=== PATIENT | male | born 2000 | race Caucasian/White ===

== ENCOUNTER 2021-09-08 15:21 | Emergency (ER) | payer OTHER ==
[~2021-09-08] VITALS: Ht 177.8 cm; Wt 70.9 kg
--- NOTE | 2021-09-08 18:25 | ECGEPIP ---
[facility] - ED Test Date: 2021-09-08 Pat Name: HERMINIA LERMA Department: Room: - Gender: Male Research Executive: SARA : 2000 Requested By: Jennifer Hannon Order Number: [id number] Reading MD: Jennifer Hannon Measurements Intervals [place] Rate: 53 P: 62 AL: 104 QRS: 74 QRSD: 92 T: 21 QT: 370 QTc: 347 Interpretive Statements Sinus bradycardia with short AL Incomplete right bundle branch block No prior Electronically Signed on 09-08-2021 18:25:05 EDT by Jennifer Hannon
[2021-09-08] MEDS ORDERED: ASPIRIN 81 MG CHEW TABLET PO ONE (19:15)
[2021-09-08] MEDS ORDERED: NITROGLYCERIN 0.4 MG SUBL TABLET SL PRN (19:15)
[2021-09-08] MEDS ORDERED: NS 1,000 ML IV SCH (19:15)
--- OUTSIDE RECORDS SUMMARY | 2021-09-08 19:31 | CCD ---
Author Author [facility] Address Unknown Phone Unavailable Support Name Relationship Address Phone [facility] Next Of Kin [address] [place] [address] Unavailable Re-disclosure Warning The records that you are about to access may contain information from federally-assisted alcohol or drug abuse programs. If such information is present, then the following federally mandated warning applies: This information has been disclosed to you from records protected by federal confidentiality rules (42 CFR part 2). The federal rules prohibit you from making any further disclosure of this information unless further disclosure is expressly permitted by the written consent of the person to whom it pertains or as otherwise permitted by 42 CFR part 2. A general authorization for the release of medical or other information is NOT sufficient for this purpose. The Federal rules restrict any use of the information to criminally investigate or prosecute any alcohol or drug abuse patient.The records that you are about to access may contain highly sensitive health information, the redisclosure of which is protected by Article 27-F of the [facility] Public Health law. If you continue you may have access to information: Regarding HIV / AIDS; Provided by facilities licensed or operated by the [facility] Office of Mental Health; or Provided by the [facility] Office for People With Developmental Disabilities. If such information is present, then the following [facility] mandated warning applies: This information has been disclosed to you from confidential records which are protected by state law. State law prohibits you from making any further disclosure of this information without the specific written consent of the person to whom it pertains, or as otherwise permitted by law. Any unauthorized further disclosure in violation of state law may result in a fine or custodial sentence or both. A general authorization for the release of medical or other information is NOT sufficient authorization for further disc losure. Immunizations Vaccine Date Status Description Data Source(s) INFLUENZA VIRUS VACCINE QUADRIVALENT 2019- (6 MOS AN D UP) 12/13/2020 12:00:00 AM EST completed [facility] Medications No Information Insurance Providers Payer name Policy type / Coverage type Policy ID Covered democrat ID Covered democrat's relationship to quiles Policy [employer] Plan Information [employer] [id number] Problems, Conditions, and Diagnoses No Information Surgeries/Procedures No Information Results No Information Social History No Information
--- NOTE | 2021-09-08 20:07 | REP ---
INDICATION: CHEST PAIN. COMPARISON: None. TECHNIQUE: Portable FINDINGS: The technique utilized in obtaining the radiograph has magnified the cardiac silhouette and accentuated the interstitial markings. The superior mediastinal structures are midline. The cardiac silhouette is unremarkable in size, shape, and position. The diaphragmatic surfaces of the lungs are regular, and the costophrenic angles are clear. The pulmonary smith are clear. The imaged osseous structures are intact. IMPRESSION: There is no acute cardiopulmonary disease. <Electronically signed by Doc Fisher > 09/08/212002
[2021-09-08 20:20] LABS: BASO % 0.4 % (0.0-1.0); EOS # 0.1 10^3/uL (0.0-0.5); EOS % 1.1 % (0.0-3.0); HEMATOCRIT 43.6 % (42.0-52.0); HEMOGLOBIN 15.7 g/dl (13.5-17.5); LYMPH # 1.7 10^3/uL (1.5-5.0); LYMPH % 22.4 % (24.0-44.0); MEAN CORPUSCULAR HEMOGLOBIN 31.6 pg (27.0-33.0); MEAN CORPUSCULAR VOLUME 87.7 fl (80.0-96.0); MONO # 0.5 10^3/uL (0.0-0.8); NEUTROPHILS # 5.2 10^3/uL (1.5-8.5); NEUTROPHILS % 69.8 % (36.0-66.0); PLATELET COUNT, AUTOMATED 259 10^3/uL (150-450); RED BLOOD COUNT 4.97 10^6/uL (4.30-6.10); WHITE BLOOD COUNT 7.5 10^3/uL (4.0-10.0)
[2021-09-08 20:53] LABS: ALT/SGPT 19 U/L (12-78); BILIRUBIN,DIRECT 0.3 MG/DL (0.0-0.2); BILIRUBIN,TOTAL 1.3 MG/DL (0.2-1.0); BLOOD UREA NITROGEN 12 MG/DL (7-18); CARBON DIOXIDE LEVEL 27 MEQ/L (21-32); CHLORIDE LEVEL 105 MEQ/L (98-107); CK-MB VALUE MASS < 1.0 NG/ML (<3.6); CPK CREATINE PHOSPHOKINASE 59 U/L (39-308); CREATININE FOR GFR 0.99 MG/DL (0.70-1.30); FREE T4 1.09 NG/DL (0.76-1.46); GLOMERULAR FILTRATION RATE > 60.0 (>60); GLUCOSE, FASTING 80 MG/DL (70-100); MB/CK RELATIVE INDEX 1.69 (< OR =4); POTASSIUM SERUM 4.4 MEQ/L (3.5-5.1); SODIUM LEVEL 140 MEQ/L (136-145); THYROID STIMULATING HORMONE 0.409 uIU/ML (0.358-3.740); TOTAL PROTEIN 7.2 GM/DL (6.4-8.2); TROPONIN I < 0.02 NG/ML (< 0.10)
[2021-09-08 23:22] VITALS: BP 121/84
--- NOTE | 2021-09-09 07:52 | ECGEPIP ---
[facility] - ED Test Date: 2021-09-08 Pat Name: HERMINIA LERMA Department: Room: - Gender: Male Public Relations Intern: KAYLA : 2000 Requested By: Christen Harris PA-C Order Number: [id number] Reading MD: Jennifer Hannon Measurements Intervals [place] Rate: 63 P: 64 MA: 126 QRS: 62 QRSD: 92 T: 17 QT: 382 QTc: 390 Interpretive Statements Normal sinus rhythm with sinus arrhythmia Incomplete right bundle branch block decreased rate 09/08/21 Electronically Signed on 09-09-2021 7:52:34 EDT by Jennifer Hannon
--- NOTE | 2021-09-09 07:52 | ECGEPIP ---
[facility] - ED Test Date: 2021-09-08 Pat Name: HERMINIA LERMA Department: Room: - Gender: Male Emergency Physician: SARA : 2000 Requested By: Christen Harris PA-C Order Number: [id number] Reading MD: Jennifer Hannon Measurements Intervals [place] Rate: 73 P: 64 HI: 118 QRS: 67 QRSD: 94 T: 10 QT: 356 QTc: 392 Interpretive Statements Normal sinus rhythm with sinus arrhythmia irbbb increased rate 09/08/21 Electronically Signed on 09-09-2021 7:52:09 EDT by Jennifer Hannon
== END 2021-09-08 23:25 | disposition home or self-care (01) ==
LOC: M ED 15:21
DX: R07.89 Other chest pain (principal); I45.10 Unspecified right bundle-branch block; R06.02 Shortness of breath; R20.2 Paresthesia of skin; E80.6 Other disorders of bilirubin metabolism